=== PATIENT | female | born 1970 | race Caucasian/White ===

== ENCOUNTER 2017-02-11 14:42 | Emergency (ER) | payer OTHER ==
[~2017-02-11] VITALS: Ht 162.6 cm; Wt 104.7 kg
--- NOTE | 2017-02-11 15:26 | REP ---
Head CT without contrast: History: Syncope. Comparison study: No comparison. CT findings: Bone window settings demonstrate an intact bony calvarium. There is no evidence of skull fracture or incidental bony calvarial lesion. The visualized paranasal sinuses appear clear. No intraorbital abnormality is seen. On soft tissue window setting images; the lateral, third, and fourth ventricles are normal in size and position. Flores-white differentiation pattern is normal above and below the tentorium. There are is no evidence of intracranial hemorrhage. No mass, edema, infarction, or midline shift is seen. No extra-axial fluid collection is appreciated. Impression: Negative noncontrast head CT. Signed by Gino West MD 02/11/2017 03:18 P
[2017-02-11 15:42] LABS: BASO % 0.5 % (0.0-1.0); EOS # 0.1 K/mm3 (0.0-0.50); EOS % 0.7 % (0.0-3.0); LARGE UNSTAINED CELL # 0.1 K/mm3 (0.0-0.4); LARGE UNSTAINED CELL % 0.9 % (0.0-4.0); LYMPH # 1.2 K/mm3 (1.5-4.5); LYMPH % 11.5 % (24.0-44.0); MEAN CORPUSCULAR HEMOGLOBIN 28.2 pg (27.0-33.0); MEAN CORPUSCULAR HGB CONC 33.6 g/dl (32.0-36.5); MONO # 0.3 K/mm3 (0.0-0.8); MONO % 2.8 % (0.0-5.0); NEUTROPHILS # 8.7 K/mm3 (1.8-7.7); NEUTROPHILS % 83.6 % (36.0-66.0); PLATELET COUNT, AUTOMATED 370 k/mm3 (150-450); RED CELL DISTRIBUTION WIDTH 13.3 % (11.5-14.5); WHITE BLOOD COUNT 10.4 K/mm3 (4.0-10.0)
[2017-02-11 15:53] LABS: ANION GAP 10 MEQ/L (8-16); BLOOD UREA NITROGEN 13 MG/DL (7-18); CALCIUM LEVEL 9.9 MG/DL (8.5-10.1); CARBON DIOXIDE LEVEL 24 MEQ/L (21-32); CHLORIDE LEVEL 105 MEQ/L (98-107); CREATININE FOR GFR 0.94 MG/DL (0.55-1.02); GLOMERULAR FILTRATION RATE > 60.0 (>58); GLUCOSE, FASTING 111 MG/DL (70-105); MAGNESIUM LEVEL 2.1 MG/DL (1.8-2.4); POTASSIUM SERUM 4.2 MEQ/L (3.5-5.1); SODIUM LEVEL 139 MEQ/L (136-145)
--- NOTE | 2017-02-11 16:13 | ECGEPIP ---
Stationary ECG Study [facility] - ED Test Date: 2017-02-11 Pat Name: YOHAN BENITEZ Department: Room: - Gender: F Hide Spreader: adelina : 1970 Requested By: ARNALDO TAMAYO Order Number: [id number] Reading MD: Alonso Dee Measurements Intervals [place] Rate: 73 P: 36 LA: 128 QRS: 23 QRSD: 88 T: 44 QT: 403 QTc: 446 Interpretive Statements SINUS RHYTHM POSSIBLE PRIOR INFERIOR INFARCT Electronically Signed On 02-11-2017 16:13:19 EDT by Alonso Dee
[2017-02-11] MEDS: NS 1,000 ML IV SCH ×2 (16:25→20:00)
[2017-02-11 17:00] LABS: METHADONE URINE NEGATIVE (NEGATIVE)
[2017-02-11] MEDS ORDERED: LOVE1INJ SC (17:36)
[2017-02-11] MEDS ORDERED: METO1TAB87 PO (17:36)
[2017-02-11] MEDS ORDERED: CHIL1CHW8 PO (17:36)
[2017-02-11] MEDS ORDERED: GAS-80CH PO (17:36)
[2017-02-11] MEDS ORDERED: FAMO20TA PO (17:36)
[2017-02-11] MEDS ORDERED: D 50CAP PO (17:37)
[2017-02-11] MEDS ORDERED: MIREIUD IU (17:37)
[2017-02-11] MEDS ORDERED: AVON1KIT3 IM (17:37)
[2017-02-11] MEDS ORDERED: CYMB60CA3 PO (17:37)
[2017-02-11] MEDS ORDERED: VITA500T53 PO (17:37)
[2017-02-11] MEDS ORDERED: GABA-283 PO (17:37)
--- NOTE | 2017-02-11 17:50 | REP ---
ABDOMINAL SERIES: Supine and erect views of the abdomen demonstrate no evidence of free intraperitoneal air and no evidence for bowel obstruction. No dilated small bowel loops are seen. IUD is seen centrally in the pelvis. There is a calcific density on each side of the pelvis of uncertain significance. A distal ureteral calculus could not totally be excluded. An accompanying view of the chest demonstrates no acute infiltrate. Heart is normal in size and the mediastinal silhouette is unremarkable. IMPRESSION: No free air or obstruction. Tiny calcific density is seen on each side of the pelvis, distal ureteral calculus could not be excluded. Signed by Manjit Flores MD 02/12/2017 05:06 P
[2017-02-11 19:10] VITALS: BP 170/81
--- NOTE | 2017-02-11 20:42 | ECGEPIP ---
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
== END 2017-02-11 20:53 | disposition home or self-care (01) ==
LOC: M ED 14:42
DX: R55 Syncope and collapse (principal); E11.9 Type 2 diabetes mellitus without complications; I10 Essential (primary) hypertension; Z79.899 Other long term (current) drug therapy
CPT/HCPCS: 36415; 70450; 74022; 80048; 80307; 81001; 82550; 82553; 83735; 84443; 85025; 85610; 93005; 93041; 94760; 96360; 96361; 99285; G0480